=== PATIENT | male | born 1985 | race Caucasian/White ===

== ENCOUNTER 2023-06-15 15:32 | Emergency (ER) | payer MEDICAID ==
[~2023-06-15] VITALS: Ht 172.7 cm; Wt 83.9 kg
[2023-06-15 15:43] VITALS: BP_SYST 147; PULSE 80; RESP 18; TEMP 98.3; O2SAT 100
[2023-06-15 16:35] LABS: BASOPHILS % (AUTO) 0.2 % (0.0-2.0); EOSINOPHILS # (AUTO) 0.2 K/uL (0.0-0.4); EOSINOPHILS % (AUTO) 1.4 % (0.0-4.0); HEMATOCRIT 50.1 % (36-54); HEMOGLOBIN 17.3 g/dL (14.0-18.0); LYMPHOCYTES # (AUTO) 0.9 K/uL (1.0-5.5); LYMPHOCYTES % (AUTO) 7.6 % (20.5-51.5); MEAN CORPUSCULAR HEMOGLOBIN 30 pg (27-31); MEAN CORPUSCULAR HGB CONC 34 % (32-36); MEAN CORPUSCULAR VOLUME 87 fL (79.0-98.0); MONOCYTES # (AUTO) 0.4 K/uL (0.0-1.0); MONOCYTES % (AUTO) 3.2 % (1.7-9.3); NEUTROPHILS # (AUTO) 10.2 K/uL (1.8-7.7); NEUTROPHILS % (AUTO) 87.6 % (40.0-70.0); PLATELET COUNT (AUTO) 333 K/uL (130-430); RED BLOOD CELL COUNT(AUTO) 5.74 MIL/uL (4.2-6.2); RED CELL DISTRIBUTION WIDTH 13.1 % (9.0-15.0); WHITE BLOOD COUNT (AUTO) 11.7 K/uL (4.8-10.8)
[2023-06-15 16:37] LABS: CALCIUM 9.4 mg/dL (8.4-11.0); POTASSIUM 3.5 mmol/L (3.5-5.1)
[2023-06-15 16:41] LABS: PROTHROMBIN TIME 10.6 SECS (9.5-12.5)
[2023-06-15 16:51] LABS: ALBUMIN 4.3 g/dL (3.4-4.8); BILIRUBIN,DIRECT 0.2 mg/dL (0.0-0.3); TOTAL BILIRUBIN 0.7 mg/dL (0.0-1.0)
[2023-06-15 17:41] LABS: BILIRUBIN,URINE NEGATIVE (NEGATIVE); BLOOD, URINE NEGATIVE (NEGATIVE); CLARITY/URINE CLEAR (CLEAR); COLOR,URINE YELLOW (YELLOW); GLUCOSE,URINE NEGATIVE (NEGATIVE); KETONES,URINE TRACE (NEGATIVE); LEUKOCYTE ESTERASE ,URINE NEGATIVE (NEGATIVE); NITRITE, URINE NEGATIVE (NEGATIVE); PROTEIN URINE NEGATIVE (NEGATIVE)
[2023-06-15] MEDS ORDERED: IBUP-1971 PO (17:59)
[2023-06-15] MEDS ORDERED: CIPR500T5 PO (17:59)
[2023-06-15 18:50] VITALS: BP_SYST 121; PULSE 84; RESP 18; TEMP 98.1; O2SAT 95
== END 2023-06-15 19:46 | disposition home or self-care (01) ==
LOC: SED 15:32
DX: N45.1 Epididymitis (principal); R10.31 Right lower quadrant pain; R19.7 Diarrhea, unspecified; Z79.899 Other long term (current) drug therapy
CPT/HCPCS: 36415; 76376; 80048; 80076; 81001; 81003; 82150; 83690; 85025; 85610-TC; 85730-TC; 99284

== ENCOUNTER 2023-08-07 14:29 | Emergency (ER) | payer MEDICAID ==
[~2023-08-07] VITALS: Ht 172.7 cm; Wt 81.6 kg
[~2023-08-07 14:29] MED LIST: CIPR500T5 PO; IBUP-1971 PO
[2023-08-07 14:56] VITALS: BP_SYST 131; PULSE 95; RESP 18; TEMP 98.2; O2SAT 100
[2023-08-07 15:24] LABS: BILIRUBIN,URINE NEGATIVE (NEGATIVE); BLOOD, URINE NEGATIVE (NEGATIVE); CLARITY/URINE CLEAR (CLEAR); COLOR,URINE YELLOW (YELLOW); GLUCOSE,URINE NEGATIVE (NEGATIVE); KETONES,URINE NEGATIVE (NEGATIVE); LEUKOCYTE ESTERASE ,URINE NEGATIVE (NEGATIVE); NITRITE, URINE NEGATIVE (NEGATIVE); PROTEIN URINE NEGATIVE (NEGATIVE); UROBILINOGEN,URINE 0.2 (0.2-1.0)
[2023-08-07] MEDS ORDERED: IBUP-1969 PO (17:57)
[2023-08-07 18:00] VITALS: BP_SYST 123; PULSE 89; RESP 16; TEMP 98.2; O2SAT 100
== END 2023-08-07 18:00 | disposition home or self-care (01) ==
LOC: SED 14:29
DX: F15.20 Other stimulant dependence, uncomplicated (principal); Z79.899 Other long term (current) drug therapy
CPT/HCPCS: 36415; 81001; 81003; 87491; 99283